=== PATIENT | female | born 1960 | race Caucasian/White ===

== ENCOUNTER 2018-03-10 20:41 | Emergency (ER) | payer OTHER ==
--- NOTE | 2018-03-10 20:44 | PDOC ---
Rapid Medical Evaluation Time Seen by Provider: 03/10/18 20:41 Medical Evaluation: 03/10/18 20:42 I have performed a brief in-person evaluation of this patient. The patient presents with a chief complaint of: dysuria x1 week Pertinent physical exam findings: -CVAT. Abd SNTND. I have ordered the following: urine The patient will proceed to the ED for further evaluation. Discharge Disposition - Diagnosis Dysuria - Referrals - Patient Instructions - Post Discharge Activity
[2018-03-10 20:46] VITALS: BP 156/54; PULSE 63; TEMP 98.2; BMI 31.4
--- NOTE | 2018-03-10 21:07 | PDOC ---
History of Present Illness - General Chief Complaint: Urinary Problem Stated Complaint: POSSIBLE UTI Time Seen by Provider: 03/10/18 20:41 - History of Present Illness Initial Comments: 03/10/18 21:06 57-year-old female without comorbidities presents for evaluation of dysuria times one week without associated systemic symptoms Past History - Past Medical History Allergies/Adverse Reactions: Allergies Allergy/AdvReac Type Severity Reaction Status Date / Time No Known Allergies Allergy Verified 03/10/18 20:46 Home Medications: Ambulatory Orders Nitrofurantoin Monohyd/M-Cryst [Macrobid -] 100 mg PO BID #14 capsule 03/10/18 - Suicide/Smoking/Psychosocial Hx Smoking History: Never smoked Have you smoked in the past 12 months: No Information on smoking cessation initiated: No Hx Alcohol Use: No Drug/Substance Use Hx: No Review of Systems - Review of Systems Constitutional: No: Chills, Fever, Malaise, Night Sweats : Yes: Burning, Dysuria *Physical Exam - Vital Signs Last Vital Signs Temp Pulse Resp BP Pulse Ox 98.2 F 63 16 156/54 L 99 03/10/18 20:44 03/10/18 20:44 03/10/18 20:44 03/10/18 20:44 03/10/18 20:44 - Physical Exam Comments: 03/10/18 21:06 HEAD: NC/AT EYES: Conjuntiva clear ABDOMEN: Soft NT ND no cvat MS: Full ROM in all joints without edema NEUROLOGIC: No gross sensory or motor deficits, NVID SKIN: Normal color and temperature no lesions or rashes *DC/Admit/Observation/Transfer Diagnosis at time of Disposition: Dysuria, UTI (urinary tract infection) - Discharge Dispostion Disposition: HOME Condition at time of disposition: Stable Decision to Admit order: No - Prescriptions Prescriptions: Nitrofurantoin Monohyd/M-Cryst [Macrobid -] 100 mg PO BID #14 capsule - Referrals Referrals: Herbie Valdes MD [Staff Physician] - - Patient Instructions Printed Discharge Instructions: Urinary Tract Infection Additional Instructions: Return to the emergency room should symptoms worsen or go unresolved. Please follow-up with internal medicine in 2-3 days for further evaluation and treatment options. Please take the antibiotics as directed. - Post Discharge Activity
[2018-03-10 21:10] LABS: URINE APPEARANCE CLEAR; URINE BILIRUBIN NEGATIVE (<2.0 mg/dL); URINE COLOR COLORLESS; URINE GLUCOSE (UA) NEGATIVE (NEGATIVE); URINE KETONE NEGATIVE (NEGATIVE); URINE LEUK ESTERASE TRACE (NEGATIVE); URINE NITRITE NEGATIVE (NEGATIVE); URINE PROTEIN NEGATIVE (NEGATIVE); URINE UROBILINOGEN NEGATIVE mg/dL (0.2-1.0)
[2018-03-10] MEDS ORDERED: PHENAZOPYRIDINE HCL 100 MG TABLET (FP) PO ONE (21:44)
[2018-03-10] MEDS ORDERED: NITROFURANTOIN MACROCRYSTAL 50 MG CAPSULE (FP) PO SCH (21:45)
[2018-03-10] MEDS ORDERED: PHENAZOPYRIDINE HCL 100 MG TABLET (FP) ONE (21:47)
[2018-03-10] MEDS ORDERED: NITROFURANTOIN MACROCRYSTAL 50 MG CAPSULE (FP) ONE (21:47)
== END 2018-03-10 21:55 | disposition home or self-care (01) ==
LOC: JERFT 20:41
DX: N39.0 Urinary tract infection, site not specified (principal)
CPT/HCPCS: 81003; 81015; 87086; 99281-25